=== PATIENT | male | born 1985 | race Caucasian/White ===

== ENCOUNTER 2021-05-31 15:24 | Emergency (ER) | payer OTHER, SELFPAY ==
--- NOTE | 2021-05-31 15:34 | ED.DIZZY ---
HPI - Dizziness General Chief Complaint: Dizziness Stated Complaint: Dizzy Time Seen by Provider: 05/31/21 15:34 Source: patient and RN notes reviewed History of Present Illness HPI Narrative: Patient is a 35-year-old male who presents the urgent care with complaints of dizziness, nausea and a slight headache. Patient states that his symptoms started approximately 5 weeks ago and he was seen in another urgent care approximately 1 month ago. Patient states that he was treated for a sinus infection and placed on antibiotics. Patient states that it did improve briefly but symptoms have been increased in the last 24 hours. Patient denies of taking anything [id number] for his symptoms. Denies of chest pain. States that he has had to use an inhaler recently for his intermittent shortness of breath due to asthma. No other acute complaints. No acute distress noted. Patient aware of the plan of care. Some parts of this dictation were generated by voice recognition software and may contain typographical and/or grammatical inaccuracies. Related Data Home Medications Medication Instructions Recorded Confirmed albuterol sulfate 2 puff INHALATION Q4H PRN 05/31/21 05/31/21 fluticasone furoate-vilanterol 1 inh INHALATION DAILY 05/31/21 05/31/21 [Breo Ellipta] Allergies Allergy/AdvReac Type Severity Reaction Status Date / Time Penicillins Allergy Mild Unverified 12/28/08 19:49 Review of Systems Review of Systems: CONSTITUTIONAL: Denies fever, chills, or sweats. EYES: Denies visual changes, redness, or discharge. ENT: Denies rhinorrhea, congestion, sore throat, or otalgia. CARDIOVASCULAR: Denies chest pain, palpitations, or edema. RESPIRATORY: Denies cough or dyspnea. GASTROINTESTINAL: Reports of intermittent nausea without vomiting, diarrhea or abdominal pain GENITOURINARY: Denies dysuria or hematuria. SKIN: Denies rash or itching. MUSCULOSKELETAL: Denies back pain, joint pain, or myalgia. NEUROLOGIC: Reports of dizziness with slight headache All other systems reviewed are negative, except as documented in HPI. PMFSH Comments At the time of my signature, I reviewed and agree with the nursing past medical, surgical, social, and family history. There is no relevant family history pertinent to the patient complaint. Exam Narrative: GENERAL: This is a well-nourished, well-developed patient, in no apparent distress. HEAD: normocephalic, atraumatic. EYES: PERRL. Sclera clear/white. Vision is grossly intact. EARS: External ears normal, auditory canals clear and without drainage, TMs normal without perforation. Hearing grossly intact. NOSE: External nose normal with no obvious nasal discharge, nares without redness, no rhinorrhea. THROAT: Mucous membranes moist, posterior pharynx clear. Mild postnasal drainage NECK: Neck supple CARDIOVASCULAR: Regular rate and rhythm without murmurs, gallops, or rubs. RESPIRATORY: Clear to auscultation. Breath sounds equal bilaterally. No wheezes, rales, or rhonchi. GASTROINTESTINAL: Abdomen soft, non-tender, nondistended. Bowel sounds are active. SKIN: warm, intact with no suspicious lesions or rash, good texture and turgor. NEURO: awake, alert, and oriented to person, place and time. There were no obvious focal neurologic abnormalities. EXTREMITIES: No clubbing, cyanosis, or edema. Course Vital Signs Vital signs: Vital Signs Temperature 98.2 F 05/31/21 15:35 Pulse Rate 78 05/31/21 15:35 Respiratory Rate 20 05/31/21 15:35 Blood Pressure 168/105 H 05/31/21 15:35 Pulse Oximetry 98 05/31/21 15:35 Temperature 98.2 F 05/31/21 15:35 Pulse Rate 78 05/31/21 15:35 Respiratory Rate 20 05/31/21 15:35 Blood Pressure 168/105 H 05/31/21 15:35 Pulse Oximetry 98 05/31/21 15:35 Reviewed-patient is informed that they may have pre-hypertension or hypertension based on a blood pressure reading in the department. I recommend the patient call the primary care provider list
[2021-05-31 15:35] VITALS: BP 168/105; PULSE 78; RESP 20; TEMP 36.8; O2SAT 98
[2021-05-31 15:45] VITALS: BP 169/95; PULSE 70
--- NOTE | 2021-05-31 15:45 | ECG_ITS ---
Measurements Intervals [place] Rate: 69 P: 44 VT: 142 QRS: 75 QRSD: 105 T: 50 QT: 362 QTc: 388 Interpretive Statements SINUS RHYTHM MINIMAL Q WAVES- INFERIOR LEADS BORDERLINE ECG Electronically Signed On 06-01-2021 14:07:49 CDT by Vasyl Godoy D.O.
[2021-05-31 15:50] VITALS: BP 155/94; PULSE 71
[2021-05-31 15:56] VITALS: BP 165/95; PULSE 72
== END 2021-05-31 16:00 | disposition home or self-care (01) ==
PROVIDERS: Emergency Provider Nurse Practitioner Family
DX: I10 Essential (primary) hypertension (principal); J45.909 Unspecified asthma, uncomplicated
CPT/HCPCS: 93005; 99213; G0463